=== PATIENT | male | born 1950 | race Caucasian/White ===

== ENCOUNTER 2018-04-30 19:29 | Emergency (ER) | payer MEDICARE, BC ==
[2018-04-30] MEDS ORDERED: NS 0.9% 1000 ML* 1,000 ML IV ONE (20:26)
--- NOTE | 2018-04-30 20:36 | ED ---
Head Injury - HPI Summary HPI Summary: This is brooks Lenz documenting for attending physician Naman Simon M.D. Pt is a 68 y/o male BIB[place] who [place] [facility] [place]/p head injury at 18:55. As per , they were having dinner at home. Pt began to act confused, bent over to pick something off the floor, then fell out of his chair and hit his head. states he was not unresponsive and there was no LOC, but pt does not remember what happened. Pt had 3 manhattans tonight, and states he was drinking more alcohol than he should have been. He states he drinks alcohol weekly. Pt states he now feels fine. He takes daily baby ASA. - History Of Current Complaint Chief Complaint: EDSyncope Stated Complaint: SYNCOPE Time Seen by Provider: 04/30/18 20:14 Hx Obtained From: Patient, Family/Methods Analyst Data Processing - Mechanism Of Injury: Fall From Height Of: - Sitting in chair Onset/Duration: Started Hours Ago - 18:55, Resolved Severity Currently: None Pain Intensity: 0 Pain Scale Used: 0-10 Numeric Location: Discrete At: - Above right eyebrow, left temporal area Aggravating Factor(s): Other: - Consuming 3 alcoholic beverages Associated Signs And Symptoms: Confusion Anticoagulant Therapy: ASA - Daily - Allergies/Home Medications Allergies/Adverse Reactions: Allergies Allergy/AdvReac Type Severity Reaction Status Date / Time bisacodyl [From Modane] Allergy Stomach Verified 04/30/18 19:55 Cramps dextrose [From Modane] Allergy Stomach Verified 04/30/18 19:55 Cramps docusate [From Modane] Allergy Stomach Verified 04/30/18 19:55 Cramps erythromycin base Allergy Stomach Verified 04/30/18 19:54 Cramps phenolphthalein [From Modane] Allergy Stomach Verified 04/30/18 19:55 Cramps psyllium [From Modane] Allergy Stomach Verified 04/30/18 19:55 Cramps PMH/Surg Hx/FS Hx/Imm Hx Cardiovascular History: Reports: Hx Hypertension Musculoskeletal History: Reports: Hx Joint Replacement - Bilateral hip - Surgical History Surgery Procedure, Year, and Place: hip replacement Infectious Disease History: No Infectious Disease History: Denies: Traveled Outside the [place] in Last 30 Days - Family History Known Family History: Positive: Other - CVA - Social History Alcohol Use: Weekly Substance Use Type: Reports: None Smoking Status (MU): Never Smoked Tobacco Review of Systems Negative: Chest Pain Positive: Other - Laceration over right eyebrow Neurological: Other - NEGATIVE: LOC All Other Systems Reviewed And Are Negative: Yes Physical Exam - Summary Physical Exam Summary: VITAL SIGNS: Reviewed. GENERAL: Patient is a well-developed and nourished MALE who is lying comfortable in the stretcher. Patient is not in any acute respiratory distress. HEAD AND FACE: No signs of trauma. No ecchymosis, hematomas or skull depressions. No sinus tenderness. EYES: PERRLA, EOMI x 2, No injected conjunctiva, no nystagmus. EARS: Hearing grossly intact. Ear canals and tympanic membranes are within normal limits. MOUTH: Oropharynx within normal limits. NECK: Supple, trachea is midline, no adenopathy, no JVD, no carotid bruit, no c- spine tenderness, neck with full ROM. CHEST: Symmetric, no tenderness at palpation LUNGS: Clear to auscultation bilaterally. No wheezing or crackles. CVS: Regular rate and rhythm, S1 and S2 present, no murmurs or gallops appreciated. ABDOMEN: Soft, non-tender. No signs of distention. No rebound no guarding, and no masses palpated. Bowel sounds are normal. EXTREMITIES: FROM in all major joints, no edema, no cyanosis or clubbing. NEURO: Alert and oriented x 3. No acute neurological deficits. Speech is normal and follows commands. SKIN: Dry and warm. 2 cm laceration over right eyebrow. 6 cm abrasion over right temporal area. GCS: 15 Triage Information Reviewed: Yes Vital Signs On Initial Exam: Initial Vitals Temp Pulse Resp BP Pulse Ox 98.2 F 74 16 127/77 97 04/30/18 19:50 04/30/18 19:50 04/30/18 19:50 04/30/18 19:50 04/30/18 19:50 Vital Signs Reviewed: Yes Procedures - Laceration/Wound Repair 1 Location: head - Right eyebrow Description: Linear Anesthesia: 2.0%, Epi Irrigated w/ Saline (ccs): 100 Laceration/Wound Explored: no foreign body removed - Good alignment Suture Type: Prolene - 5.0 Number of Sutures: 4 Diagnostics - Vital Signs Vital Signs Temp Pulse Resp BP Pulse Ox 07/23/18 19:50 98.2 F 74 16 127/77 97 - Laboratory Result Diagrams: 04/30/18 20:43 04/30/18 20:43 Lab Statement: Any lab studies that have been ordered have been reviewed, and results considered in the medical decision making process. - CT Brain CT CT Interpretation: No Acute Changes - 20:52 No acute intracranial pathology. ED physician reviewed radiology report. - EKG 20:39 Cardiac Rate: NL - 75 bpm EKG Rhythm: Sinus Rhythm EKG Interpretation: Normal axis. Normal interval. No ischemic changes. Head Injury Course/Dx Course Of Treatment: Pt is a 68 y/o male [place] who [place] [facility] [place] head injury at 18:55. Pt began to act confused at dinner, bent over to pick something off the floor, then fell out of his chair and hit his head. states he was not unresponsive and there was no LOC, but pt does not remember what happened. Pt had 3 alcoholic beverages. He states he drinks alcohol weekly. A physical exam revealed a 2 cm laceration over right eyebrow, a 6 cm abrasion over right temporal area, and a GCS of 15. A laceration repair was performed: right eyebrow, linear, 2% epi, no FB removed, good alignment, 4 5.0 prolene stiches, and irrigated with [address] A [address] was negative. An EKG revealed normal rate at 75 bpm, Normal axis. Normal interval. No ischemic changes. Final dx are alcohol intoxication and laceration of right eyebrow. Pt is discharged with instructions to remove stitches in 7 days. Pt is agreeable with this plan. - Diagnoses Provider Diagnoses: Alcohol intoxication, Laceration of right eyebrow Discharge - Sign-Out/Discharge Documenting (check all that apply): Patient Departure - Discharge - Discharge Plan Condition: Stable Disposition: HOME Patient Education Materials: Care For Your Stitches (ED), Alcohol Intoxication (ED) Referrals: Archie Farley MD [Primary Care Provider] - 7 Days Additional Instructions: Stitches must be removed in 7 days. RETURN TO THE EMERGENCY DEPARTMENT FOR CHANGING OR WORSENING SYMPTOMS
[2018-04-30 20:57] LABS: ABS Basophils 0 10^3/ul (0-0.2); ABS Eosinophils 0.1 10^3/ul (0-0.6); ABS Lymphocytes 0.9 10^3/ul (1.0-4.8); ABS Monocytes 0.5 10^3/ul (0-0.8); ABS Neutrophils 4.3 10^3/ul (1.5-7.7); ABS Nucleated RBC 0 10^3/ul; Eosinophil % 1.5 % (0-6); Hematocrit 38 % (42-52); Hemoglobin 13.1 g/dl (14.0-18.0); Lymphocyte % 15.9 % (25-47); Mean Corpuscular HGB Conc 35 g/dl (31-36); Mean Corpuscular Hemoglobin 34 pg (27-31); Mean Corpuscular Volume 97 fL (80-94); Mean Platelet Volume 8.8 um3 (7.4-10.4); Nucleated Red Blood Cells % 0.1; Platelet Count 163 10^3/ul (150-450); Red Cell Distribution Width 13 % (10.5-15); White Blood Count 5.8 10^3/ul (3.5-10.8)
[2018-04-30 21:08] LABS: INR 0.98 (0.77-1.02)
[2018-04-30] MEDS ORDERED: Tetan/Diph/Pertus SYR(Tdap)* 0.5 ML SYR(BOOSTRIX) use SYR IM ONE (21:14)
[2018-04-30 21:25] LABS: EGFR Non-African American 73.9 (>60)
[2018-04-30] MEDS ORDERED: Lidocaine 2% EPI 1:200000 MPF*10-20 ML VIAL ONE (21:40)
[2018-04-30 21:43] LABS: Urine Appearance Clear; Urine Blood Negative (Negative); Urine Color Yellow; Urine Ketones Negative (Negative); Urine Protein Negative (Negative); Urine Specific Gravity 1.008 (1.010-1.030); Urine Urobilinogen Negative (Negative)
[2018-04-30 22:52] VITALS: BP 125/78
--- NOTE | 2018-05-01 07:33 | RAD ---
INDICATION: Fall. Intracranial injury COMPARISON: None TECHNIQUE: Noncontrast axial source images were acquired from the skull base to the vertex. FINDINGS: Ventricles/sulci: There is cortical atrophy with compensatory dilatation of the CSF spaces. Brain parenchyma: There is no focal parenchymal finding, evidence of intracranial mass, or intracranial mass effect. Intracranial hemorrhage:None. Extra-axial spaces: There are no abnormal extra axial fluid collections or evidence of extra-axial mass. Calvarium: There is no calvarial fracture or other calvarial abnormality. Scalp: There is no evidence of scalp or extracalvarial soft tissue abnormality. Paranasal sinuses/mastoid: The paranasal sinuses and mastoid air cells are clear. Other: None. IMPRESSION: No acute intracranial findings
== END 2018-04-30 22:52 | disposition home or self-care (01) ==
LOC: ED 19:29
DX: F10.129 Alcohol abuse with intoxication, unspecified (principal); S01.111A Laceration without foreign body of right eyelid and periocular area, initial encounter; W07.XXXA Fall from chair, initial encounter; Y93.89 Activity, other specified; Y92.000 Kitchen of unspecified non-institutional (private) residence as the place of occurrence of the external cause; Z23 Encounter for immunization; Z79.82 Long term (current) use of aspirin; Z96.643 Presence of artificial hip joint, bilateral; Z88.1 Allergy status to other antibiotic agents; Z88.8 Allergy status to other drugs, medicaments and biological substances; Z82.3 Family history of stroke
CPT/HCPCS: 12011; 36415; 70450; 80053; 80320; 81003; 83605; 83735; 84443; 84484; 85025; 85610; 85730; 90471; 90715; 93005; 96360; 99282; G0480